=== PATIENT | male | born 1990 | race Two or more races ===

== ENCOUNTER 2019-06-14 13:39 | Emergency (ER) | payer MEDICAID ==
[~2019-06-14] VITALS: Ht 170.2 cm; Wt 80.0 kg
[2019-06-14 13:55] VITALS: BP 131/99
--- NOTE | 2019-06-14 14:25 | NUR ---
PT STATES DRINKING LAST NIGHT AND WAS LOOKING AT PHONE WHEN VISION CHANGED WHERE HE IS SEEING WHITE. VISION CONTINUES TO BE THAT WAY SINCE THEN. AWAITING EYE EXAM ROOM
[2019-06-14] MEDS ORDERED: FLUORESCEIN OPHTHALMIC 1 MG STRIP ONE (14:28)
--- NOTE | 2019-06-14 14:50 | NUR ---
PT NOW IN EYE ROOM, THIS RN HAS TAKEN OVER CARE OF PT. PT SITTING IN CHAIR. MD AT BEDSIDE.
--- NOTE | 2019-06-14 14:57 | NUR ---
dr pineda spoke with dr [email or web address]
--- NOTE | 2019-06-14 15:26 | NUR ---
DR. GUZMAN AT BEDSIDE NOW.
== END 2019-06-14 16:24 | disposition home or self-care (01) ==
LOC: ED 14:26
DX: H18.601 Keratoconus, unspecified, right eye (principal); H18.621 Keratoconus, unstable, right eye
CPT/HCPCS: 99283